=== PATIENT | female | born 1955 | race African-American/Black ===

== ENCOUNTER 2019-04-10 09:32 | Inpatient (IN) ==
[2019-04-10] MEDS ORDERED: ONDANSETRON 4 MG/2 ML VIAL ONE (10:07)
[2019-04-10] MEDS ORDERED: HYDROmorphone 2 MG/1 ML VIAL ONE (10:08)
[2019-04-10 10:14] LABS: Basophils % 0.7 % (0.0-0.8); Eosinophils # 0.1 10*3/uL (0.0-0.87); Hematocrit 42.1 VOL% (35.7-47.0); Hemoglobin 13.8 GM/DL (12.0-16.0); Immature Granulocytes % 0.2 %; Immature Granulocytes Absolute 0.01 #; Lymphocytes # 2.7 10*3/uL (1.4-4.0); Lymphocytes % 44.2 % (21.3-54.2); Mean Corpuscular HGB Conc 32.8 GM/DL (32-36); Mean Corpuscular Volume 102.4 FL (87-102); Monocytes % 6.3 % (1.7-12.7); Neutrophils % 47.6 % (38.7-73.9); Platelet Count 243 T/CUMM (130-400); Red Blood Count 4.11 MC/CUMM (3.8-5.5); Red Cell Distribution Width 11.9 % (9.3-17.3); White Blood Count 6.1 T/CUMM (4-12)
[2019-04-10 10:40] LABS: Albumin 3.8 G/DL (3.4-5.0); Bilirubin,Total 0.9 MG/DL (0.2-1.0); Calcium 8.9 MG/DL (8.5-10.1); Osmolality,Calculated 272.8 MOS/KG (273-304); Total Protein 8.1 G/DL (6.4-8.3)
[2019-04-10] MEDS ORDERED: ONDANSETRON 4 MG/2 ML VIAL IV STA (10:46)
[2019-04-10] MEDS ORDERED: HYDROmorphone 2 MG/1 ML VIAL IV STA (10:46)
[2019-04-10 10:55] LABS: Apearance,Urine CLEAR (Clear); Bilirubin,Urine Negative (Negative); Blood, Urine Negative (Negative); Glucose,Urine (UA) Negative (Negative); Ketones,Urine Negative (Negative); Mucus,Urine Occasional /LPF (Occasional); Nitrite,Urine Negative (Negative); Protein,Urine Negative; RBC,Urine <1 /HPF (0-4); Urine Color Straw (Yellow); Urine Specific Gravity 1.014 (1.001-1.035); Urine Urobilinogen < 2.0 EU/DL (0.2-1.0); WBC,Urine <1 /HPF (0-6)
[2019-04-10] MEDS ORDERED: DEXTROSE 10% 250 ML BAG IV PRN (12:44)
[2019-04-10] MEDS ORDERED: GLUCAGON 1 MG VIAL IM PRN (12:44)
[2019-04-10] MEDS ORDERED: ACETAMINOPHEN 325 MG TABLET PO PRN (12:44)
[2019-04-10] MEDS ORDERED: CYCLOBENZAPRINE 10 MG TABLET PO PRN (13:38)
[2019-04-10] MEDS: KETOROLAC 15 MG/1 ML VIAL IV PRN ×2 (15:00→22:13)
[2019-04-10] MEDS ORDERED: ALBUTEROL 2.5 MG/3 ML NEB RESP TX PRN (15:00)
[2019-04-10] MEDS: HYOSCYAMINE 0.125 MG TABLET PO SCH ×2 (15:40→22:17)
[2019-04-10] MEDS: POTASSIUM CHLORIDE 20 MEQ TABLET PO PRN ×3 (15:40→20:15)
[2019-04-10] MEDS: INSULIN LISPRO 100 UNIT/ML SUBCUT SCH ×2 (16:29→22:17)
[2019-04-10] MEDS: ONDANSETRON 4 MG/2 ML VIAL IV PRN (20:12)
[2019-04-10] MEDS: POTASSIUM CHLORIDE 20 MEQ TABLET PO SCH (20:15)
[2019-04-10] MEDS: GABAPENTIN 600 MG TABLET PO SCH (20:16)
[2019-04-10] MEDS: traZODone 50 MG TABLET PO SCH (20:16)
[2019-04-11] MEDS: KETOROLAC 15 MG/1 ML VIAL IV PRN (04:51)
[2019-04-11 05:25] LABS: Basophils % 0.5 % (0.0-0.8); Eosinophils # 0.1 10*3/uL (0.0-0.87); Eosinophils % 2.1 % (0.00-10.9); Immature Granulocytes % 0.2 %; Immature Granulocytes Absolute 0.01 #; Lymphocytes # 2.4 10*3/uL (1.4-4.0); Lymphocytes % 55.6 % (21.3-54.2); Mean Corpuscular HGB Conc 33.3 GM/DL (32-36); Mean Corpuscular Volume 101.1 FL (87-102); Mean Platelet Volume 9.8 FL (9.6-12.0); Monocytes % 7.8 % (1.7-12.7); Neutrophils % 33.8 % (38.7-73.9); Platelet Count 252 T/CUMM (130-400); Red Blood Count 3.56 MC/CUMM (3.8-5.5); Red Cell Distribution Width 11.8 % (9.3-17.3); White Blood Count 4.4 T/CUMM (4-12)
[2019-04-11] MEDS: HYOSCYAMINE 0.125 MG TABLET PO SCH ×6 (05:58→23:05)
[2019-04-11 06:02] LABS: Band Neutrophils 2 % (0-10); Lymphocytes 65 % (20-55); Platelet Estimate Adequate; Segmented Neutrophils 25 % (50-85); Total Cells Counted 100
[2019-04-11 06:09] LABS: Calcium 8.4 MG/DL (8.5-10.1); Osmolality,Calculated 273.7 MOS/KG (273-304); Risk Ratio 4.41; Thyroid Stimulating Hormone 2.93 uIU/ml (0.358-3.74); VLDL CHOLESTEROL 24.6 MG/DL
[2019-04-11] MEDS: ONDANSETRON 4 MG/2 ML VIAL IV PRN (07:54)
[2019-04-11] MEDS: POTASSIUM CHLORIDE 20 MEQ TABLET PO SCH ×2 (07:55→09:01)
[2019-04-11] MEDS: GABAPENTIN 600 MG TABLET PO SCH ×2 (07:56→09:01)
[2019-04-11] MEDS: PANTOPRAZOLE 40 MG TABLET PO SCH ×2 (07:56→09:01)
[2019-04-11] MEDS: FLUTICASONE 50 MCG NASAL SPRAY 16 GM BOTTLE BOTH NARES SCH (08:03)
[2019-04-11] MEDS: INSULIN LISPRO 100 UNIT/ML SUBCUT SCH ×4 (08:03→21:00)
[2019-04-11] MEDS ORDERED: LOSARTAN/HCTZ 50-12.5 MG TABLET PO SCH (09:00)
[2019-04-11] MEDS: Vilazodone [Viibryd] 40 MG PO SCH (09:17)
[2019-04-11] MEDS: predniSONE 20 MG TABLET PO SCH (12:44)
[2019-04-11] MEDS: HYDROmorphone 2 MG/1 ML VIAL IV PRN (12:44)
[2019-04-11] MEDS: BACLOFEN 10 MG TABLET PO SCH ×2 (15:49→20:59)
[2019-04-11] MEDS: PREGABALIN 50 MG CAPSULE PO SCH ×2 (15:49→20:59)
[2019-04-11] MEDS: LACTULOSE 20 GM/30 ML UDCUP PO SCH (20:59)
[2019-04-11] MEDS: LOSARTAN/HCTZ 50-12.5 MG TABLET PO SCH (20:59)
[2019-04-11] MEDS: traZODone 50 MG TABLET PO SCH ×2 (21:00→23:13)
[2019-04-12] MEDS: HYOSCYAMINE 0.125 MG TABLET PO SCH ×4 (05:05→23:29)
[2019-04-12] MEDS: HYDROmorphone 2 MG/1 ML VIAL IV PRN ×2 (05:19→11:06)
[2019-04-12 05:41] LABS: Basophils % 0.1 % (0.0-0.8); Eosinophils % 0.1 % (0.00-10.9); Hemoglobin 12.3 GM/DL (12.0-16.0); Immature Granulocytes % 0.3 %; Immature Granulocytes Absolute 0.02 #; Lymphocytes # 1.8 10*3/uL (1.4-4.0); Lymphocytes % 25.7 % (21.3-54.2); Mean Corpuscular HGB Conc 34.2 GM/DL (32-36); Mean Corpuscular Volume 99.7 FL (87-102); Mean Platelet Volume 11.6 FL (9.6-12.0); Monocytes % 6.5 % (1.7-12.7); Neutrophils % 67.3 % (38.7-73.9); Platelet Count 129 T/CUMM (130-400); Red Blood Count 3.61 MC/CUMM (3.8-5.5); Red Cell Distribution Width 11.4 % (9.3-17.3); White Blood Count 6.8 T/CUMM (4-12)
[2019-04-12 06:10] LABS: Calcium 8.2 MG/DL (8.5-10.1); Osmolality,Calculated 264.5 MOS/KG (273-304)
[2019-04-12 06:15] LABS: Band Neutrophils 1 % (0-10); Lymphocytes 28 % (20-55); Segmented Neutrophils 61 % (50-85)
[2019-04-12 06:16] LABS: Total Cells Counted 100
[2019-04-12 06:17] LABS: Platelet Estimate Adequate
[2019-04-12] MEDS: INSULIN LISPRO 100 UNIT/ML SUBCUT SCH ×4 (09:04→20:47)
[2019-04-12] MEDS: PREGABALIN 50 MG CAPSULE PO SCH ×3 (09:05→20:49)
[2019-04-12] MEDS: LACTULOSE 20 GM/30 ML UDCUP PO SCH ×2 (09:05→20:50)
[2019-04-12] MEDS: BACLOFEN 10 MG TABLET PO SCH ×3 (09:05→20:49)
[2019-04-12] MEDS: FLUTICASONE 50 MCG NASAL SPRAY 16 GM BOTTLE BOTH NARES SCH (09:05)
[2019-04-12] MEDS: Vilazodone [Viibryd] 40 MG PO SCH (09:06)
[2019-04-12] MEDS: predniSONE 20 MG TABLET PO SCH (09:06)
[2019-04-12] MEDS: PANTOPRAZOLE 40 MG TABLET PO SCH (09:06)
[2019-04-12] MEDS: LOSARTAN/HCTZ 50-12.5 MG TABLET PO SCH ×2 (10:11→20:48)
[2019-04-12] MEDS: traZODone 50 MG TABLET PO SCH (20:48)
[2019-04-13] MEDS: HYOSCYAMINE 0.125 MG TABLET PO SCH (05:01)
[2019-04-13] MEDS: HYDROmorphone 2 MG/1 ML VIAL IV PRN ×2 (05:10→13:37)
[2019-04-13] MEDS: predniSONE 20 MG TABLET PO SCH (16:39)
[2019-04-13] MEDS: PANTOPRAZOLE 40 MG TABLET PO SCH ×3 (16:39→21:47)
[2019-04-13] MEDS: BACLOFEN 10 MG TABLET PO SCH ×3 (16:39→21:46)
[2019-04-13] MEDS: PREGABALIN 50 MG CAPSULE PO SCH ×3 (16:40→21:47)
[2019-04-13] MEDS: Vilazodone [Viibryd] 40 MG PO SCH (16:41)
[2019-04-13] MEDS: LACTULOSE 20 GM/30 ML UDCUP PO SCH (16:42)
[2019-04-13] MEDS: FLUTICASONE 50 MCG NASAL SPRAY 16 GM BOTTLE BOTH NARES SCH (16:45)
[2019-04-13] MEDS: INSULIN LISPRO 100 UNIT/ML SUBCUT SCH ×4 (17:18→19:00)
[2019-04-13] MEDS: CLARITHROMYCIN 500 MG TABLET PO SCH (21:45)
[2019-04-13] MEDS: POLYETHYLENE GLYCOL POWDER 17 GM PACK PO SCH (21:45)
[2019-04-13] MEDS: LOSARTAN/HCTZ 50-12.5 MG TABLET PO SCH (21:45)
[2019-04-13] MEDS: metroNIDAZOLE 500 MG TABLET PO SCH (21:46)
[2019-04-14] MEDS: ONDANSETRON 4 MG/2 ML VIAL IV PRN (00:37)
[2019-04-14] MEDS: HYDROmorphone 2 MG/1 ML VIAL IV PRN (00:38)
[2019-04-14] MEDS: metroNIDAZOLE 500 MG TABLET PO SCH (08:53)
[2019-04-14] MEDS: PREGABALIN 50 MG CAPSULE PO SCH (08:53)
[2019-04-14] MEDS: PANTOPRAZOLE 40 MG TABLET PO SCH (08:53)
[2019-04-14] MEDS: BACLOFEN 10 MG TABLET PO SCH (08:54)
[2019-04-14] MEDS: predniSONE 20 MG TABLET PO SCH (08:54)
[2019-04-14] MEDS: POLYETHYLENE GLYCOL POWDER 17 GM PACK PO SCH (08:58)
[2019-04-14] MEDS: Vilazodone [Viibryd] 40 MG PO SCH (08:58)
[2019-04-14] MEDS: CLARITHROMYCIN 500 MG TABLET PO SCH (08:59)
[2019-04-14] MEDS: FLUTICASONE 50 MCG NASAL SPRAY 16 GM BOTTLE BOTH NARES SCH (09:00)
[2019-04-14] MEDS: INSULIN LISPRO 100 UNIT/ML SUBCUT SCH ×2 (09:03→12:31)
[2019-04-14 11:37] VITALS: BP 155/94
== END 2019-04-14 12:27 | disposition home or self-care (01) | DRG 241 ==
LOC: N.ED 09:32 → N.EDINP 09:32 → N.5E 14:10
PROVIDERS: ADMIT Internal Medicine; ATTEND Internal Medicine